=== PATIENT | female | born 1965 | race Caucasian/White ===

== ENCOUNTER → 2024-04-25 | Outpatient (CLI) | payer OTHER ==
[2024-04-25 15:25] VITALS: BP 135/92; PULSE 94; RESP 16; TEMP 99
--- NOTE | 2024-04-25 16:07 | P.SLEEP ---
History of Present Illness DATE: 04/25/2024 CONSULTATION/NEW PATIENT EVALUATION HISTORY OF PRESENT ILLNESS/SLEEP-WAKE EVALUATION: 59-year-old lady had been e valuated in the sleep center for possible obstructive sleep apnea hypopnea syndrome. SLEEP SCHEDULE: Usually sleep schedule from 11 PM to 7 AM 7 days a week. FALLING ASLEEP: Patient does have problems with falling asleep, has TV in bedroom. DURING SLEEP: Patient snores and wakes up from sleep several times with up to 3 episodes of nocturia. Positive history of grinding teeth, palpitations, gasping for air, hand tremors. No history of hypnogogical hallucinations, sleep paralysis, or cataplexy. DURING THE DAY/WAKE STATE: In the morning patient wake up tired his difficulties to pay attention, has problems with memory, concentration, irritability. [place] sleepiness scale is 4. Patient takes 1 nap at noon time. PAST MEDICAL HISTORY: Depression, anxiety, allergy, hypothyroidism, headaches sometimes starting in the morning after awakenings. PAST SURGICAL HISTORY: Partial hysterectomy. MEDICATIONS: Please see below. SOCIAL HISTORY: Please see below. FAMILY HISTORY: Hypertension, heart problems, cancer, during the sleep. REVIEW OF SYSTEMS: Snoring, multiple awakenings from sleep. No fevers. No double vision. No recent chest pain. No shortness of breath. No abdominal pain. No bleeding episodes. No blood in urine. No seizure episodes. PHYSICAL EXAMINATION: GENERAL: A pleasant patient without any distress. VITAL SIGNS: Please see below, weight 167 pounds, BMI 30.5. HEENT: PERRLA, EOMI. Evaluation of oropharynx showed tongue protrudes midline, low position of soft palate Mallampati 34. NECK: Supple. No JVD. Thyroid is not palpable. 14 inches in circumference. LUNGS: Clear to percussion and to auscultation. Good air exchange. No wheezing or rhonchi. HEART: S1, S2 regular. No murmurs, gallops or rubs. ABDOMEN: Soft and nontender. Bowel sounds are present. No organomegaly appreciated. EXTREMITIES: No clubbing or cyanosis. INSTRUMENT ROOM TECHNICIAN: Awake, alert, and oriented x3. Cranial nerves 2 to 7 intact. There is no fasciculation or atrophy noted. No focal deficits observed. ASSESSMENT: 1. Snoring, multiple awakenings from sleep, extremely low position of soft palate, episodes of sleepiness. Obstructive sleep apnea hypopnea syndrome. 2. Difficulties with initiating sleep, psychophysiological insomnia. 3. History of depression. 4. History of anxiety. 5 headaches, sometimes starting in the morning after awakenings. 6 . Allergy. 7. Hypothyroidism. 8. Status post partial hysterectomy. 9 . Mild obesity, BMI 30.5. PLAN: 1. Polysomnography for evaluation of patient's breathing during sleep. 2. Following plan after reading sleep study. 3. Preferable position during sleep on the side. 4. No driving if patient feels any sleepiness. Patient is aware of civil and criminal liability for unsafe driving. 5. Sleep hygiene with regular sleep time for at least 7.5-8 hours. 6. Watching weight. Thank you very much for referring this patient for consultation. Sincerely, Marek Blood MD, PhD, FAASM. Diplomat of [employer], Sleep Medicine Board by [employer] [place] Examiner of [facility] [place] Past Medical History Past Medical History: Thyroid Disorder History of Any Multi-Drug Resistant Organisms: None Reported Past Surgical History: Hysterectomy, Tonsillectomy Past Anesthesia/Blood Transfusion Reactions: No Reported Reaction Past Psychological History: Anxiety, Depression Smoking Status: Never smoker Past Alcohol Use History: Rare Past Drug Use History: Marijuana - Past Family History Father Family Medical History: Cancer, Coronary Artery Disease (CAD), GERD/Reflux, Hyperlipidemia, Hypertension Additional Family Medical History / Comment(s): snoring, Mother Family Medical History: Cancer, GERD/Reflux, Osteoarthritis (OA) Additional Family Medical History / Comment(s): headaches, sinus headaches, snoring Medications and Allergies Home Medications Medication Instructions Recorded Confirmed Type Cholecalciferol (Vitamin D3) 04/25/24 History [Vitamin D3 (125 MCG = 5,000 IU)] Escitalopram [Lexapro] 10 mg PO DAILY 04/25/24 04/25/24 History Levothyroxine Sodium 25 mcg PO 04/25/24 History Loratadine [Claritin] 10 mg PO DAILY 04/25/24 04/25/24 History Naproxen Sodium [Aleve] 1 tab-cap PO DIRECTED PRN 04/25/24 History Physical Exam Vitals: Vital Signs Temp Pulse Resp BP Pulse Ox 04/25/24 15:23 99 F 94 16 135/92 96 Intake and Output 04/25/24 04/25/24 04/25/24 06:59 14:59 22:59 Other: Weight 75.75 kg Sleep Note - Sleep Data ESS Total: 4 - Sleep Note Sleep Note: Temperature: 99 F Pulse Rate: 94 Respiratory Rate: 16 Blood Pressure: 135/92 SpO2: 96 Height: 5 ft 2 in Weight: 75.75 kg BMI: Neck Circumference: 14
== END ==
LOC: 3 N SLEEP 15:01
PROVIDERS: ATTEND Internal Medicine
DX: G47.33 Obstructive sleep apnea (adult) (pediatric) (principal); F51.04 Psychophysiologic insomnia; F32.A Depression, unspecified; F41.9 Anxiety disorder, unspecified; R51.9 Headache, unspecified; E03.9 Hypothyroidism, unspecified; E66.9 Obesity, unspecified; T78.40XA Allergy, unspecified, initial encounter; Z90.712 Acquired absence of cervix with remaining uterus; Z68.30 Body mass index [BMI] 30.0-30.9, adult; Z79.890 Hormone replacement therapy
CPT/HCPCS: 99202

== ENCOUNTER 2024-07-01 19:11 | Outpatient (CLI) | payer OTHER ==
--- NOTE | 2024-07-03 11:42 | P.PCN ---
Description of Procedure: POLYSOMNOGRAPHY REPORT PROCEDURE(S)/DATE(S): Polysomnography 07/01/2024 CLINICAL: Patient has been seen in the sleep center for evaluation of obstructive sleep apnea-hypopnea syndrome. Please see my consultation. Sleep study has been done for evaluation of patient breathing during the sleep. PROCEDURE: The standard montage for clinical polysomnography included the electroencephalogram, the electrooculogram, the mentalis surface electromyography and Lead II cardiography. The respiratory battery consisted of measurements of nasal/buccal air flow, pressure transducer measurements from nose, thoracic and/or abdominal effort and intercostal surface electromyography. Video monitoring has been done to check for any parasomnia events. Nocturnal oxyhemoglobin saturations were obtained by finger oximetry. Step-cohn titration with positive airway pressure was utilized to control the respiratory events, if necessary. RESULTS: During the diagnostic sleep study sleep efficiency was decreased to 72.8%. Latency to sleep onset was significantly prolonged to 51.5 min. Sleep architecture showed stage NI was short 2.1%, Delta sleep was in high range 18.0%, REM sleep was short 11.3%. Respiratory channel showed 0 obstructive apneas, 0 mixed apneas, 0 central apneas, 29 hypopneas with lowest oxygen level 89%. Total apnea hypopnea index was 5.0. Heart rate was in the range between 66 and 74, average 70. EMG showed 50.1 periodic limb movements per hour with 0.7 micro-arousals per hour. IMPRESSIONS: 1. Mild obstructive sleep apnea hypopnea syndrome. 2. Very significant periodic limb movements have been documented. 3. Loud snoring have been documented. 4. Prolonged sleep latency and short sleep efficiency indicates insomnia versus first night adaptation response. Please see other impressions from consultation PLAN: 1. The patient will have AutoPAP treatment for correction of respiratory abnormalities during the sleep. 2. Losing weight . 3. Sleep hygiene with regular time in bed for at least 7-1/2 hours. 4. No driving if feeling sleepiness. 5. Please check iron profile including ferritin level. Low level of iron may increase the risk for periodic limb movements. 6. I will see patient for follow-up visit to evaluate clinical response on treatment, compliance with treatment and make any necessary adjustments related to pressure, mask fitting and humidification. Thank you very much for allowing me to participate in the management of your patient. Sincerely, Marek Blood MD, PhD, FAASM. Diplomat of [place] [employer], Sleep Medicine Board by [place] [employer] Public Relations Writer of [facility] [place] cc: Itzel Oliveira
== END 2024-07-02 05:36 | disposition home or self-care (01) ==
LOC: 3 N SLEEP 19:11
PROVIDERS: ATTEND Internal Medicine
DX: G47.33 Obstructive sleep apnea (adult) (pediatric) (principal); G47.61 Periodic limb movement disorder; F32.A Depression, unspecified; F41.9 Anxiety disorder, unspecified; E03.9 Hypothyroidism, unspecified; E66.9 Obesity, unspecified; F51.04 Psychophysiologic insomnia; R51.9 Headache, unspecified; Z90.711 Acquired absence of uterus with remaining cervical stump; Z68.30 Body mass index [BMI] 30.0-30.9, adult
CPT/HCPCS: 95810

== ENCOUNTER → 2024-08-01 | Outpatient (CLI) | payer OTHER ==
--- NOTE | 2024-08-01 11:16 | XR ---
EXAMINATION TYPE: XR thoraco lumbar junction DATE OF EXAM: 08/01/2024 10:42 AM CLINICAL INDICATION: Female, 59 years old with history of M542 CERVICALGIA; [facility] COMPARISON: None TECHNIQUE: XR thoraco lumbar junction - Frontal, lateral and coned in L5-S1 lateral views of the spin e. FINDINGS: No evidence of any acute osseous pathology. No evidence of loss of vertebral body height i s seen. There is normal alignment of the lumbar vertebral bodies. Scattered disc space narrowing. Mul tilevel marginal osteophyte formation throughout the visualized spine. There is facet joint arthropat hy throughout the spine. Scattered at least mild neural foraminal stenosis. Right renal calculus edgar uring up to 7 mm. IMPRESSION: 1. No acute fracture. 2. Mild multilevel disc degeneration. [facility], , 08/01/2024 11:14 AM
== END | disposition home or self-care (01) ==
LOC: RADXRMAIN 10:17
PROVIDERS: ATTEND Nurse Practitioner Family
CPT/HCPCS: 72080

== ENCOUNTER → 2024-08-06 | Outpatient (CLI) | payer OTHER ==
--- NOTE | 2024-08-06 12:54 | XR ---
EXAMINATION TYPE: XR cervical spine comp DATE OF EXAM: 08/06/2024 CLINICAL HISTORY: pain COMPARISON: NONE TECHNIQUE: Neutral, flexion and extension views of the cervical spine as well as AP view. FINDINGS: The cervical spine is visualized in its entirety from C1 thru the top of T1 level. It is s atisfactory in alignment without evidence of acute fracture or dislocation. The pre-vertebral soft t issue appears within normal limits. Moderate to severe narrowing at C4-5. At flexion, extension and n eutral there is stable and unremarkable alignment. The C1-C2 articulation is unremarkable on the open mouth view. The oblique images are within normal limits. IMPRESSION: No acute fracture or dislocation is seen in the cervical spine.ICD 10 NO FRACTURE, INITI AL EVALUATION [facility], , 08/06/2024 12:52 PM
[2024-08-06 17:33] LABS: T4, Free (Free Thyroxine) 1.29 ng/dL (0.80-1.80)
== END | disposition home or self-care (01) ==
LOC: LABWHC1 11:07
PROVIDERS: ATTEND Family Medicine
CPT/HCPCS: 36415; 72050; 84439; 84443

== ENCOUNTER → 2024-09-04 | Outpatient (CLI) | payer OTHER ==
[2024-09-04 15:59] VITALS: BP 138/91; PULSE 92; RESP 16; TEMP 98.6
--- NOTE | 2024-09-04 16:10 | P.PROGSL ---
Subjective DATE: 09/04/2024 FOLLOW UP VISIT. Patient with obstructive sleep apnea hypopnea syndrome return to sleep center for follow-up visit. Recently patient had sleep study which documented obstructive sleep apnea hypopnea syndrome. Patient was initiated on PAP therapy and today is first visit after treatment was started. Patient was able to use PAP equipment every night for the whole night. The patient does not have significant problems with the mask, PAP pressure and humidification. [place] sleepiness scale is 4, which is normal. I checked information from PAP unit. PAP unit pressure AutoPap, average 10.5 cm H2O. Usage is 80% and 70% for more then 4 hours. Leak is 19 l/m, which is in acceptable range. Apnea Hypopnea Index is 2.3, which is normal. MEDICATIONS:1. Lexapro 10 mg once a day 2. Levothyroxine 25 mcg once a day 3. Claritin 10 mg once a day During physical exam: GENERAL: A pleasant patient without any distress. VITAL SIGNS: Please see below, weight 164 pounds. HEENT: PERRLA, EOMI.low position of soft palate, Mallapati 3/4. NECK: Supple. No JVD. LUNGS: Clear to percussion and to auscultation. Good air exchange. No wheezing or rhonchi. HEART: S1, S2 regular. ABDOMEN: Soft and nontender.[] EXTREMITIES: No clubbing or cyanosis. ANTENNA INSTALLER: Awake, alert, and oriented x3. No focal deficit. Impressions: 1. Obstructive sleep apnea-hypopnea syndrome. Patient demonstrated good compliance with treatment, benefiting from treatment. 2. Status post recent COVID-19. 3. History of depression. 4. History of anxiety. 5. History of headaches. 6. Allergy. 7. Hypothyroidism. 8. Status post partial hysterectomy. Plan: 1. Continue using PAP equipment every night for the whole night. 2. To change air filter at least 1-2 times per month. 3. PAP unit should stay lower then position of the head. 4. Advised patient to remove all remaining water from humidifier canister daily and make it dry after each usage. Refill canister with fresh distilled water before each usage. 5. Sleep hygiene with regular time in bed for at least 8 hours. 6. Precautions related to driving. No driving if feel any sleepiness. 7. I will maintain prescription for PAP supplies including mask, tube, filters. 8. Follow up visit in 6 months or earlier if patient has any problems. 9. Watching and losing weight. Thank you very much for allowing me to participate in the management of your patient. Marek Blood MD, PhD, FAASM. Diplomat of [place] [employer], Sleep Medicine Board by [place] [employer] Promotion Producer of [facility] [place] Objective - Vital Signs Vital Signs: Vital Signs Temp 98.6 F 09/04/24 15:58 Pulse 92 09/04/24 15:58 Resp 16 09/04/24 15:58 BP 138/91 09/04/24 15:58 Pulse Ox 97 09/04/24 15:58 FiO2 Intake & Output 09/03/24 09/04/24 09/04/24 18:59 06:59 18:59 Weight 164 kg Home Medications: Home Medications Medication Instructions Recorded Confirmed Type Cholecalciferol (Vitamin D3) 04/25/24 History [Vitamin D3 (125 MCG = 5,000 IU)] Escitalopram [Lexapro] 10 mg PO DAILY 04/25/24 04/25/24 History Levothyroxine Sodium 25 mcg PO 04/25/24 History Loratadine [Claritin] 10 mg PO DAILY 04/25/24 04/25/24 History Naproxen Sodium [Aleve] 1 tab-cap PO DIRECTED PRN 04/25/24 History
== END ==
LOC: 3 N SLEEP 15:46
PROVIDERS: ATTEND Internal Medicine
DX: G47.33 Obstructive sleep apnea (adult) (pediatric) (principal); E03.9 Hypothyroidism, unspecified; F32.A Depression, unspecified; F41.9 Anxiety disorder, unspecified; Z86.16 Personal history of COVID-19; Z99.89 Dependence on other enabling machines and devices; Z79.890 Hormone replacement therapy; Z86.69 Personal history of other diseases of the nervous system and sense organs; Z90.711 Acquired absence of uterus with remaining cervical stump
CPT/HCPCS: 99212

== ENCOUNTER → 2025-04-09 | Outpatient (CLI) | payer OTHER ==
--- NOTE | 2025-04-09 14:38 | MM ---
Reason for Exam: Screening (asymptomatic). Last mammogram was performed 1 year(s) and 4 month(s) ago. Patient History: Menarche at age 13. Hysterectomy at age 44. Postmenopausal. Paternal aunt had breast cancer at or over age 50. Mother had breast cancer under age 50. Risk Values: Niya 5 year model risk: 2.6%. NCI Lifetime model risk: 13.5%. Prior Study Comparison: 11/30/2023 Bilateral Screening Mammogram, Unknown. Tissue Density: There are scattered areas of fibroglandular density. Findings: Analyzed By CAD. Right breast: There is no suspicious group of microcalcifications or new suspicious mass. Left breast: There is no suspicious group of microcalcifications or new suspicious mass. Overall Assessment: Negative, BI-RAD 1 Management: Screening Mammogram of both breasts in [address] [facility] will attempt to contact patient to return for supplemental views and ultrasound if indicated. Patient should continue monthly self-breast exams. A clinical breast exam by your physician is recommended on an annual basis. This exam should not preclude additional follow-up of suspicious palpable abnormalities. Note on Niya scores and lifetime risk: 1. A Niya score greater than 3% is considered moderate risk. If this is the case, consider specialist referral to assess eligibility for a risk reducing agent. 2. If overall lifetime risk for the development of breast cancer is 20% or higher, the patient may qualify for future screening with alternating mammogram and breast MRI. [facility], , 04/09/2025 2:34 PM. Electronically signed and approved by: Hipolito Navarrete DO
== END | disposition home or self-care (01) ==
LOC: RADMAMWWP 14:00
PROVIDERS: ATTEND Student in an Organized Health Care Education/Training Program
DX: Z12.31 Encounter for screening mammogram for malignant neoplasm of breast (principal); R92.323 Mammographic fibroglandular density, bilateral breasts; Z78.0 Asymptomatic menopausal state; Z80.3 Family history of malignant neoplasm of breast
CPT/HCPCS: 77063; 77067

== ENCOUNTER → 2025-04-23 | Outpatient (CLI) | payer OTHER ==
[2025-04-23 14:44] VITALS: BP 118/79; PULSE 80; RESP 12; TEMP 98.2
--- NOTE | 2025-04-23 15:06 | P.PROGSL ---
Subjective DATE: 04/23/2025 FOLLOW UP VISIT. Patient with obstructive sleep apnea hypopnea syndrome return to sleep center for follow-up visit. Information from previous visit have been reviewed. Patient is using PAP equipment every night for the whole night, getting PAP supplies in time. The patient does not have significant problems with the mask, PAP unit and humidification. [place] sleepiness scale is 0. I checked information from PAP unit. PAP unit pressure 5-12, average 10.8 cm H2O. Usage is 98% for more then 4 hours, average 9.1 hours per night. Leak is 14 l/m, which is in acceptable range. Apnea Hypopnea Index is 2.6, which is normal. MEDICATIONS have been reviewed, please see below. During physical exam: GENERAL: A pleasant patient without any distress. VITAL SIGNS: Please see below, weight is 169.4 lbs. HEENT: PERRLA, EOMI.low position of soft palate, Mallapati 34. NECK: Supple. No JVD. LUNGS: Clear to percussion and to auscultation. Good air exchange. No wheezing or rhonchi. HEART: S1, S2 regular. ABDOMEN: Soft and nontender.[] EXTREMITIES: No clubbing or cyanosis. MIXER AND SCALER: Awake, alert, and oriented x3. No focal deficit. Impressions: 1. Obstructive sleep apnea-hypopnea syndrome. Patient demonstrated great compliance with treatment, benefiting from treatment. 2. Mild obesity, BMI 30.9, patient increased weight down 5 pounds comparing with the previous visit. 3. History of depression. 4. History of anxiety. 5. Allergy. 6. History of headaches. 7. Status post partial hysterectomy. 8. Hypothyroidism. Plan: 1. Continue using PAP equipment every night for the whole night. 2. Sleep hygiene with regular time in bed for at least 7.5-8 hours 3. PAP unit should stay lower then position of the head. 4. Advised patient to remove all remaining water from humidifier canister daily and make it dry after each usage. Refill canister with fresh distilled water before each usage. 5. Watching weight. 6. Precautions related to driving. No driving if feel any sleepiness. 7. I will maintain prescription for PAP supplies including mask, tube, filters. 8. Follow up visit in 8 months or earlier if patient has any problems. Thank you very much for allowing me to participate in the management of your patient. Marek Blood MD, PhD, FAASM. Diplomat of [place] [employer], Sleep Medicine Board by [place] [employer] Paste Mixer Liquid of [facility] [place] Objective - Vital Signs Vital Signs: Vital Signs Temp 98.2 F 04/23/25 14:42 Pulse 80 04/23/25 14:42 Resp 12 04/23/25 14:42 BP 118/79 04/23/25 14:42 Pulse Ox 97 04/23/25 14:42 FiO2 Intake & Output 04/22/25 04/23/25 04/23/25 18:59 06:59 18:59 Weight 76.657 kg Home Medications: Home Medications Medication Instructions Recorded Confirmed Type Cholecalciferol (Vitamin D3) 04/25/24 History [Vitamin D3 (125 MCG = 5,000 IU)] Escitalopram [Lexapro] 10 mg PO DAILY 04/25/24 04/25/24 History Levothyroxine Sodium 25 mcg PO 04/25/24 History Loratadine [Claritin] 10 mg PO DAILY 04/25/24 04/25/24 History Naproxen Sodium [Aleve] 1 tab-cap PO DIRECTED PRN 04/25/24 History
== END ==
LOC: 3 N SLEEP 14:27
PROVIDERS: ATTEND Internal Medicine
DX: G47.33 Obstructive sleep apnea (adult) (pediatric) (principal); E66.9 Obesity, unspecified; Z68.30 Body mass index [BMI] 30.0-30.9, adult; E03.9 Hypothyroidism, unspecified; F32.A Depression, unspecified; F41.9 Anxiety disorder, unspecified; Z99.89 Dependence on other enabling machines and devices; Z90.711 Acquired absence of uterus with remaining cervical stump
CPT/HCPCS: 99212